=== PATIENT | male | born 1960 | race Caucasian/White ===

== ENCOUNTER → 2018-11-19 13:07 | Outpatient (CLI) | payer SELFPAY ==
[2018-11-19 13:36] LABS: Erythrocyte Sedimentation Rate 12 mm/hr (0-20)
== END ==
PROVIDERS: Family Provider Internal Medicine; PCP Internal Medicine; Referring Provider Internal Medicine
DX: M79.10 Myalgia, unspecified site (principal)
CPT/HCPCS: 36415; 85652

== ENCOUNTER → 2018-12-17 08:05 | Outpatient (CLI) | payer BC, SELFPAY ==
--- NOTE | 2018-12-17 08:34 | RAD_ITS ---
STUDY: X-RAY - RIGHT SHOULDER REASON FOR EXAM: Male, 58 years old. Shoulder pain TECHNIQUE: 4 view(s) of the shoulder. COMPARISON: None. FINDINGS: Mild degenerative changes of the acromioclavicular joint. The glenohumeral articulation is normal. No acute fractures. Old healed fractures involving some of the right upper ribs RAD/Shoulder min 2 Views IMPRESSION: No acute fractures of the shoulder girdle. Old healed fractures involving some of the upper ribs. Mild degenerative changes of the acromioclavicular joint Electronically Signed: Guido Castaneda MD at 6:23 EDT Tel , Service support ,
--- NOTE | 2018-12-17 08:35 | RAD_ITS ---
STUDY: X-RAY - LEFT SHOULDER REASON FOR EXAM: Male, 58 years old. Bilateral shoulder pain. TECHNIQUE: 4 view(s) of the shoulder. COMPARISON: None. FINDINGS: There is mild degenerative arthrosis of the glenohumeral articulation. There is degenerative arthrosis of the acromioclavicular joint without inferior osseous spur formation. Normal acromion. There is no acute fracture, dislocation or destructive osseous pathology. Normal humeral head and visualized proximal humerus. The soft tissue structures are unremarkable. Normal visualized pulmonary apex. RAD/Shoulder min 2 Views IMPRESSION: Mild arthrosis of the left shoulder. Electronically Signed: Alexander Woodard DO at 10:17 EDT Tel [phone], Service support ,
[2018-12-17 08:49] LABS: Absolute Lymphocyte Count 1.98 X10^3/ul (0.83-4.51); Absolute Neutrophil Count 4.8 X10^3/uL (2.0-7.7); Basophil# 0.04 X10^3/uL; Basophil% 0.5 % (0-1); Eosinophil# 0.22 X10^3/uL; Eosinophils% 2.8 % (0-5); Hematocrit 44.5 % (40-54); Hemoglobin 14.6 g/dl (13.0-16.5); Lymphocyte # 1.98 X10^3/ul (4.0); Lymphocyte % 25.6 % (19-41); Mean Corp Hgb Conc 32.8 g/gl (32-36); Mean Corpuscular Hgb 31.5 pg (27.0-32.0); Mean Corpuscular Volume 96.1 fL (80-94); Mean Platelet Vol. 8.9 fl (6.2-12.0); Monocyte# 0.69 X10^3/uL; Monocyte% 8.9 % (0-10); Neutrophil # 4.78 X10^3/uL (2.7-7.7); Neutrophil % 61.8 % (47-70); Platelet Count 248 K/mm3 (150-450); RBC Distribution Width CV 13.4 % (11.6-14.6); RBC Distribution Width SD 46.1 fl (35.1-43.9); Red Blood Count 4.63 M/mm3 (4.6-6.2); White Blood Count 7.7 K/mm3 (4.4-11.0)
[2018-12-17 08:54] LABS: POSITIVE COUNT NO; POSITIVE DIFFERENTIAL NO; POSITIVE MORPHOLOGY NO
[2018-12-17 09:26] LABS: ALB/GLOB Ratio 1.2 RATIO (0.9-2.4); AST(SGOT) 16 U/L (15-37); Alanine Aminotransfer ALT/SGPT 24 U/L (16-61); Albumin, Serum 3.8 g/dL (3.2-5.0); Alkaline Phosphatase 79 U/L (45-117); Anion Gap 5 (5-15); BUN 21 mg/dL (7-18); Calcium,Total 8.6 mg/dL (8.5-10.1); Chloride 111 mmol/L (98-107); Creatinine, Serum 1.05 mg/dL (0.70-1.30); EST Glomerular Filtration Rate 77 mL/min (>60); Est Glom Filt Rate - Afr Amer 93 mL/min (>60); Globulin 3.3 g/dL (2.2-4.2); Glucose 84 mg/dL (74-106); PSA,Total - Annual Screen 0.36 ng/mL (0.00-4.00); Potassium 4.9 mmol/L (3.5-5.1); Protein, Total 7.1 g/dL (6.4-8.2); Sodium Level 145 mmol/L (136-145); Thyroid Stim Hormone (TSH) 1.28 uIU/mL (0.358-3.74)
[2018-12-17 10:36] LABS: Vitamin D,25 Hydroxy 32.6 ng/mL (29.95-100.01)
[2018-12-19 14:07] LABS: CHOLESTEROL TOTAL 206 mg/dL (100-199); HDL-C 58 mg/dL (>39); HDL-P TOTAL 34.1 umol/L (>=30.5); SMALL LDL-P 355 nmol/L (<=527); TRIGLYCERIDES 96 mg/dL (0-149)
[2018-12-21 11:55] LABS: INSULIN RESISTANCE SCORE 34 (<=45); LDL SIZE 21.7 nm (>20.5); LDL-C 129 mg/dL (0-99); LDL-P 1359 nmol/L (<1000)
== END ==
PROVIDERS: Family Provider Internal Medicine; PCP Internal Medicine; Referring Provider Internal Medicine; Visit Provider Internal Medicine
DX: M25.511 Pain in right shoulder (principal); M25.512 Pain in left shoulder; E78.00 Pure hypercholesterolemia, unspecified; E55.9 Vitamin D deficiency, unspecified; Z12.5 Encounter for screening for malignant neoplasm of prostate
CPT/HCPCS: 36415; 73030; 80053; 80061; 82306; 83704; 84153; 84443; 85025; G0103

== ENCOUNTER → 2019-02-15 11:54 | Outpatient (CLI) | payer BC, SELFPAY ==
[2019-02-15 12:39] LABS: Absolute Lymphocyte Count 1.38 X10^3/ul (0.83-4.51); Basophil# 0.05 X10^3/uL; Basophil% 0.4 % (0-1); Eosinophil# 0.08 X10^3/uL; Eosinophils% 0.7 % (0-5); Hematocrit 45.8 % (40-54); Hemoglobin 15.1 g/dl (13.0-16.5); Lymphocyte # 1.38 X10^3/ul (4.0); Lymphocyte % 11.2 % (19-41); Mean Corpuscular Hgb 30.1 pg (27.0-32.0); Mean Corpuscular Volume 91.4 fL (80-94); Mean Platelet Vol. 9.1 fl (6.2-12.0); Monocyte# 0.69 X10^3/uL; Monocyte% 5.6 % (0-10); Neutrophil # 10.02 X10^3/uL (2.7-7.7); Neutrophil % 81.7 % (47-70); Platelet Count 318 K/mm3 (150-450); Red Blood Count 5.01 M/mm3 (4.6-6.2); White Blood Count 12.3 K/mm3 (4.4-11.0)
[2019-02-15 12:40] LABS: Erythrocyte Sedimentation Rate 19 mm/hr (0-20)
[2019-02-15 12:49] LABS: POSITIVE COUNT NO; POSITIVE DIFFERENTIAL NO; POSITIVE MORPHOLOGY NO
[2019-02-15 13:00] LABS: CRP, High Sensitivity Cardiac 2.09 mg/L; Rheumatoid Factor < 10.0 IU/mL (<15); Thyroid Stim Hormone (TSH) 0.85 uIU/mL (0.358-3.74)
[2019-02-17 14:06] LABS: PROELU- Albumin, Urine 29.9 % (.); PROELU- Alpha-2-Globulin,Ur 37.9 % (.); PROELU- Beta Globulin, Ur 15.9 % (.); PROELU- Gamma Globulin, Ur 12.2 % (.); Total Protein, Ur 12.3 mg/dL (Not Estab.)
== END ==
PROVIDERS: Family Provider Internal Medicine; PCP Internal Medicine; Referring Provider Nurse Practitioner; Visit Provider Nurse Practitioner
DX: M25.50 Pain in unspecified joint (principal)
CPT/HCPCS: 36415; 84165; 84166; 84443; 85025; 85652; 86141; 86200; 86431

== ENCOUNTER → 2019-03-17 13:01 | Outpatient (CLI) | payer BC, SELFPAY ==
[2019-03-17 13:38] LABS: Absolute Lymphocyte Count 1.61 X10^3/ul (0.83-4.51); Absolute Neutrophil Count 10.6 X10^3/uL (2.0-7.7); Basophil# 0.02 X10^3/uL; Basophil% 0.2 % (0-1); Eosinophil# 0.04 X10^3/uL; Eosinophils% 0.3 % (0-5); Hematocrit 41.9 % (40-54); Lymphocyte # 1.61 X10^3/ul (4.0); Lymphocyte % 12.6 % (19-41); Mean Corp Hgb Conc 33.4 g/gl (32-36); Mean Corpuscular Hgb 30.9 pg (27.0-32.0); Mean Corpuscular Volume 92.5 fL (80-94); Mean Platelet Vol. 9.3 fl (6.2-12.0); Monocyte# 0.43 X10^3/uL; Monocyte% 3.4 % (0-10); Neutrophil # 10.64 X10^3/uL (2.7-7.7); Neutrophil % 83.3 % (47-70); Platelet Count 264 K/mm3 (150-450); RBC Distribution Width CV 13.4 % (11.6-14.6); RBC Distribution Width SD 45.4 fl (35.1-43.9); Red Blood Count 4.53 M/mm3 (4.6-6.2); White Blood Count 12.8 K/mm3 (4.4-11.0)
[2019-03-17 13:53] LABS: POSITIVE COUNT NO; POSITIVE DIFFERENTIAL NO; POSITIVE MORPHOLOGY NO
== END ==
PROVIDERS: Family Provider Internal Medicine; PCP Internal Medicine; Referring Provider Nurse Practitioner; Visit Provider Nurse Practitioner
DX: D72.829 Elevated white blood cell count, unspecified (principal)
CPT/HCPCS: 36415; 85025

== ENCOUNTER → 2019-04-25 14:40 | Outpatient (CLI) | payer BC, SELFPAY ==
--- NOTE | 2019-04-25 15:20 | RAD_ITS ---
STUDY: X-RAY CHEST REASON FOR EXAM: Male, 58 years old. COPD, arthropathy TECHNIQUE: PA and lateral views of the chest. COMPARISON: None. FINDINGS: The lungs are clear and expanded. There is no demonstrated pleural abnormality. Normal size heart. Normal mediastinum and arturo. Normal visualized pulmonary arteries. There is atherosclerotic calcification of the aortic arch with tortuosity. There are diffuse degenerative changes of the visualized thoracic spine. Multiple old right-sided rib fractures. There are old left-sided rib fractures. There is no demonstrated abnormality of the visualized soft tissue structures of the upper abdomen. RAD/Chest PA and Lateral IMPRESSION: Bilateral old rib fractures. No evidence of acute focal infiltrate. Electronically Signed: Ruth Cisneros MD at 16:54 EDT Tel , Service support ,
[2019-04-25 15:39] LABS: Absolute Lymphocyte Count 2.19 X10^3/uL (0.83-4.51); Absolute Neutrophil Count 8.7 X10^3/uL (2.0-7.7); Basophil# 0.06 X10^3/uL; Basophil% 0.5 % (0-1); Eosinophil# 0.07 X10^3/uL; Eosinophils% 0.6 % (0-5); Hemoglobin 14.3 g/dL (13.0-16.5); Lymphocyte # 2.19 X10^3/ul (4.0); Lymphocyte % 18.8 % (19-41); Mean Corp Hgb Conc 32.5 g/dL (32-36); Mean Corpuscular Hgb 31.2 pg (27.0-32.0); Mean Corpuscular Volume 96.1 fL (80-94); Mean Platelet Vol. 9.3 fl (6.2-12.0); Monocyte# 0.52 X10^3/uL; Monocyte% 4.5 % (0-10); NRBC Flagged by Analyzer 0 % (0-5); Neutrophil # 8.74 X10^3/uL (2.7-7.7); Neutrophil % 75.1 % (47-70); Platelet Count 222 K/mm3 (150-450); RBC Distribution Width CV 13.2 % (11.6-14.6); Red Blood Count 4.58 M/mm3 (4.6-6.2); White Blood Count 11.6 K/mm3 (4.4-11.0)
[2019-04-25 16:08] LABS: Erythrocyte Sedimentation Rate 6 mm/hr (0-20)
[2019-04-25 16:39] LABS: ALB/GLOB Ratio 1.3 RATIO (0.9-2.4); AST(SGOT) 15 U/L (15-37); Alanine Aminotransfer ALT/SGPT 26 U/L (16-61); Albumin, Serum 3.9 g/dL (3.2-5.0); Alkaline Phosphatase 70 U/L (45-117); Anion Gap 6 (5-15); BUN 20 mg/dL (7-18); BUN/Creat Ratio 18.9 RATIO (10-20); CRP < 2.90 mg/L (0.0-3.0); Calcium,Total 8.9 mg/dL (8.5-10.1); Chloride 110 mmol/L (98-107); Creatinine, Serum 1.06 mg/dL (0.70-1.30); EST Glomerular Filtration Rate 76 mL/min (>60); Est Glom Filt Rate - Afr Amer 91 mL/min (>60); Globulin 3.1 g/dL (2.2-4.2); Glucose 90 mg/dL (74-106); Potassium 3.9 mmol/L (3.5-5.1); Rheumatoid Factor < 10.0 IU/mL (<15); Sodium Level 145 mmol/L (136-145)
[2019-04-26 14:21] LABS: Hepatitis B Surface Antibody Non-Reactive; Hepatitis B Surface Antigen Non-Reactive (Nonreactive); Hepatitis C Antibody Non-Reactive (Nonreactive)
[2019-04-27 15:54] LABS: ANTINUCLEAR ANTIBODIES DIRECT Negative (Negative)
[2019-04-28 03:07] LABS: QNTFERON TB Mitogen Value > 10.00 IU/mL (.); QNTFERON TB Nil Value 0.02 IU/mL (.); QNTFERON TB1+ Ag Value 0.02 IU/mL (.); QNTFERON TB2+ Ag Value 0.02 IU/mL (.)
[2019-04-28 11:45] LABS: CCP IgG Antibodies 3 units (0-19); Hepatitis B Core AB IgM Negative (Negative); QNTIFERON TB Positive Criteria Negative (Negative)
== END ==
PROVIDERS: Family Provider Internal Medicine; PCP Internal Medicine; Referring Provider Internal Medicine Rheumatology; Visit Provider Internal Medicine Rheumatology
DX: M06.4 Inflammatory polyarthropathy (principal); M47.892 Other spondylosis, cervical region; J44.9 Chronic obstructive pulmonary disease, unspecified; E78.5 Hyperlipidemia, unspecified; F32.89 Other specified depressive episodes; F41.1 Generalized anxiety disorder; Z87.11 Personal history of peptic ulcer disease
CPT/HCPCS: 36415; 71046; 80053; 85025; 85652; 86038; 86140; 86200; 86431; 86480; 86705; 86706; 86803; 87340

== ENCOUNTER → 2019-05-15 08:55 | Outpatient (CLI) | payer BC, SELFPAY ==
--- NOTE | 2019-05-15 08:58 | EKG12_ITS ---
Test Reason : PRE-OP Blood Pressure : / mmHG Vent. Rate : 048 BPM Atrial Rate : 048 BPM P-R Int : 128 ms QRS Dur : 080 ms QT Int : 414 ms P-R-T Axes : -08 037 030 degrees QTc Int : 369 ms Marked sinus bradycardia Abnormal ECG Confirmed by NASEEM MICHAEL MD ([id number]), news videotape editor DURAN CALERO ([id number]) on 05/16/2019 1:15:14 PM Referred By: JL Davenport Confirmed By:NASEEM MICHAEL MD
== END ==
PROVIDERS: Family Provider Internal Medicine; PCP Internal Medicine; Referring Provider Physician Assistant Surgical; Visit Provider Physician Assistant Surgical
DX: Z01.810 Encounter for preprocedural cardiovascular examination (principal)
CPT/HCPCS: 93005

== ENCOUNTER → 2019-07-07 16:56 | Outpatient (CLI) | payer BC, SELFPAY ==
[2019-07-07 17:21] LABS: Absolute Lymphocyte Count 2.43 X10^3/uL (0.83-4.51); Absolute Neutrophil Count 5.7 X10^3/uL (2.0-7.7); Basophil# 0.07 X10^3/uL; Basophil% 0.8 % (0-1); Eosinophil# 0.23 X10^3/uL; Eosinophils% 2.5 % (0-5); Hemoglobin 13.5 g/dL (13.0-16.5); Lymphocyte # 2.43 X10^3/ul (4.0); Lymphocyte % 26.9 % (19-41); Mean Corp Hgb Conc 33.8 g/dL (32-36); Mean Corpuscular Hgb 31.8 pg (27.0-32.0); Mean Corpuscular Volume 94.1 fL (80-94); Mean Platelet Vol. 8.7 fl (6.2-12.0); Monocyte# 0.56 X10^3/uL; Monocyte% 6.2 % (0-10); NRBC Flagged by Analyzer 0 % (0-5); Neutrophil # 5.72 X10^3/uL (2.7-7.7); Neutrophil % 63.4 % (47-70); Platelet Count 206 K/mm3 (150-450); RBC Distribution Width CV 13.2 % (11.6-14.6); RBC Distribution Width SD 45.1 fl (35.1-43.9); Red Blood Count 4.25 M/mm3 (4.6-6.2)
[2019-07-07 17:57] LABS: ALB/GLOB Ratio 1.5 RATIO (0.9-2.4); AST(SGOT) 18 U/L (15-37); Alanine Aminotransfer ALT/SGPT 22 U/L (16-61); Albumin, Serum 4.1 g/dL (3.2-5.0); Alkaline Phosphatase 72 U/L (45-117); Anion Gap 7 (5-15); BUN 20 mg/dL (7-18); BUN/Creat Ratio 18.5 RATIO (10-20); Calcium,Total 8.8 mg/dL (8.5-10.1); Chloride 108 mmol/L (98-107); Creatinine, Serum 1.08 mg/dL (0.70-1.30); EST Glomerular Filtration Rate 74 mL/min (>60); Est Glom Filt Rate - Afr Amer 89 mL/min (>60); Globulin 2.7 g/dL (2.2-4.2); Glucose 93 mg/dL (74-106); Protein, Total 6.8 g/dL (6.4-8.2); Sodium Level 141 mmol/L (136-145)
== END ==
PROVIDERS: Family Provider Internal Medicine; PCP Internal Medicine; Referring Provider Internal Medicine Rheumatology; Visit Provider Internal Medicine Rheumatology
DX: M06.4 Inflammatory polyarthropathy (principal); M47.892 Other spondylosis, cervical region; J44.9 Chronic obstructive pulmonary disease, unspecified; F41.9 Anxiety disorder, unspecified; F32.89 Other specified depressive episodes; E78.5 Hyperlipidemia, unspecified; Z87.11 Personal history of peptic ulcer disease
CPT/HCPCS: 36415; 80053; 85025

== ENCOUNTER → 2024-10-03 | Outpatient (CLI) | payer MEDICARE, SELFPAY ==
--- NOTE | 2024-10-03 12:35 | RAD_ITS ---
HISTORY: smoker, chest pain. TECHNIQUE: XR Chest 2 Views. COMPARISON: 04/25/2019. FINDINGS: CARDIOMEDIASTINAL BORDERS: Cardiac silhouette within normal limits in size. Mediastinal contour unremarkable with calcification of the aortic knob. LUNGS: Radiographically clear. Mild hyperinflation, suggesting COPD. PLEURA: No pleural effusion or pneumothorax seen. OSSEOUS STRUCTURES: Old bilateral rib fractures. RAD/Chest PA and Lateral IMPRESSION: No acute cardiopulmonary process identified. Electronically Signed: Belen Cooper MD at 8:43 EST ,
== END | disposition home or self-care (01) ==
PROVIDERS: PCP Family Medicine; Referring Provider Family Medicine; Visit Provider Family Medicine
DX: R07.9 Chest pain, unspecified (principal); F17.200 Nicotine dependence, unspecified, uncomplicated
CPT/HCPCS: 71046

== ENCOUNTER → 2024-10-05 | Outpatient (CLI) | payer MEDICARE, SELFPAY ==
[2024-10-05 15:12] LABS: Hematocrit 43.6 % (40-54); Hemoglobin 14.4 g/dL (13.0-16.5); Mean Platelet Vol. 9.2 fl (6.2-12.0); Platelet Count 305 K/mm3 (150-450); RBC Distribution Width CV 13.6 % (11.6-14.6); Red Blood Count 4.64 M/mm3 (4.6-6.2); White Blood Count 10.4 K/mm3 (4.4-11.0)
[2024-10-05 15:33] LABS: AST(SGOT) 14 U/L (15-37); Alanine Aminotransfer ALT/SGPT 23 U/L (16-61); Albumin, Serum 3.9 g/dL (3.2-5.0); Alkaline Phosphatase 101 U/L (45-117); Bilirubin, Direct 0.07 mg/dL (0.00-0.30); Cholesterol 236 mg/dL (200); Globulin 3.8 g/dL (2.2-4.2); High Density Lipoprotein 54 mg/dL; PSA,Total - Annual Screen 0.52 ng/mL (0.00-4.00); Protein, Total 7.7 g/dL (6.4-8.2); Triglycerides 399 mg/dL; Very Low Density Lipoprotein 80 mg/dL (5-40)
[2024-10-07 09:07] LABS: CRP, High Sensitivity 3.34 mg/L (0.00-3.00)
== END | disposition home or self-care (01) ==
LOC: MTLAB 12:41
PROVIDERS: PCP Family Medicine; Referring Provider Family Medicine; Visit Provider Family Medicine
DX: R07.9 Chest pain, unspecified (principal); Z12.5 Encounter for screening for malignant neoplasm of prostate; Z13.220 Encounter for screening for lipoid disorders; Z13.1 Encounter for screening for diabetes mellitus; F10.11 Alcohol abuse, in remission
CPT/HCPCS: 36415; 80061; 80076; 84153; 85027; 86141; G0103

== ENCOUNTER 2024-10-11 10:22 | Day surgery (SDC) | payer MEDICARE, SELFPAY ==
--- NOTE | 2024-10-09 16:28 | PAT.ANE_ITS ---
Pre-Assessment Diagnosis/Proposed Procedure Planned Operative Procedure(s): CSCOPE Anesthesia History Anesthesia History - manufacturing planner: Anesthesia History - manufacturing planner Hx Hospitalization No 10/09/24 16:16 Any Problems With Anesthesia No 10/09/24 16:16 Cholinesterase deficiency No 10/09/24 16:16 You/Your Family Experience No 10/09/24 16:16 fever (hyperthermia) with Relationship Recent Exposure to Contagious Disease Does patient have nerve No 10/09/24 16:16 stimulator Patient instructed to have device shut off --Does patient have Pacemaker or ICD? When Was Last Pacemaker Check QUESTION #4 FULL TEXT: You/Your Family Experience fever (hyperthermia) with Anesthesia Last Oral Intake Last Oral intake: Last Oral Intake NPO since Meds taken in AM with sips of water? Meds patient instructed to take am of surgery PONV PONV - manufacturing planner: PONV - manufacturing planner Female No 10/09/24 16:16 HX of Motion Sickness Yes 10/09/24 16:16 HX of N/V After Surgery No 10/09/24 16:16 Non-Smoker No 10/09/24 16:16 Duration of Surgery greater No 10/09/24 16:16 than 60 minutes Number of Risk Factors 1 10/09/24 16:16 PONV Score Low Risk 10/09/24 16:16 Height & Weight Height & Weight: Anesthesia: Height & Weight Height 5 ft 9 in 10/05/24 11:43 Respiratory Assessment Respiratory Assessment - manufacturing planner: Respiratory Tract Infection Hx - manufacturing planner Hx Respiratory Tract Infection No 10/09/24 16:16 STOP Sleep Apnea STOP Sleep Apnea - manufacturing planner: STOP Sleep Apnea - manufacturing planner Hx Hypertension No 10/09/24 16:16 Hx Sleep Apnea No 10/09/24 16:16 CPAP BIPAP Do you snore loudly (louder No 10/09/24 16:16 than talking or can be heard Do you often feel tired/ No 10/09/24 16:16 fatigued/ sleepy during daytime? Has anyone observed you stop No 10/09/24 16:16 breathing during sleep? STOP Results Negative 10/09/24 16:16 QUESTION #5 FULL TEXT : Do you snore loudly (louder than talking or can be heard through closed doors)? Tobacco Use History Tobacco Use History - manufacturing planner: Tobacco Use History - manufacturing planner Tobacco Use Smoking Status Current every day smoker 10/09/24 16:16 Hx Tobacco Use Yes 10/09/24 16:16 Years Smoking Packs Smoked per Day 0.5 10/09/24 16:16 Smoking Cessation Date was within the last 15 years Hx Smoking Cessation Date Hx Smoking Cessation Counseling Hematologic Medial History Hematologic Hx - manufacturing planner: Hematologic Medical Hx - volunteer coordinator Hx of Blood Transfusion No 10/09/24 16:16 Hx of Transfusion in last 3 No 10/09/24 16:16 Months Date of Last Transfusion (if within last 3 months) Ever experience any problems No 10/09/24 16:16 with transfusion(s)? Specify any problems Hx of Preganancy in last 3 N/A 10/09/24 16:16 Months Nurse Filling Out Transfusion NBUCHER 10/09/24 16:16 & Questions: Date: 10/09/24 10/09/24 16:16 Time: 16:16 10/09/24 16:16 Patient unable to answer at this time (ie. confused, unrespo /Reproduction History /Reproductive History - manufacturing planner: /Reproductive Hx- manufacturing planner Hx Now No 10/09/24 16:16 Gestational Age (in weeks): EDC: Hx Hx Para Hx Section SAB No 10/09/24 16:16 PFSH Medical History Wears glasses Broken teeth Loose, teeth Substance abuse Alcohol use Smoker History of cervical fracture (10/14/01) Tobacco abuse Hemorrhoid Marijuana use Home Medications ?Medication ?Instructions ?Recorded ?Last Taken ?Type MEDICAL MARIJUANA 10/05/24 Unknown History (INFORMATIONAL USE ONLY-PT USES MEDICAL MARIJUANA Allergy/AdvReac Type Severity Reaction Status Date / Time No Known Allergies Allergy Verified 10/09/24 16:15 Surgical History (Updated 10/09/24 @ 16:23 by Jojo Downey) History of neck surgery Hx of colonoscopy Social History (Updated 10/05/24 @ 11:39 by Tahira Vazquez) household members: none and other details: current occupational status: retired Smoking Status: Current every day smoker tobacco type: cigarettes alcohol intake: former substance use type: marijuana and other details: Daily Audit: Pertinent Findings Pertinent Findings EKG Perinent findings: 05/15/2019 sinus bradycardia 48 bpm Pulmonary function results/spirometer pertinent findings: 10/03/2024 no acute cardiopulmonary process identified Recommendation Anesthesia Recommendation Anesthesia recommendation: OPTIMIZED for anesthesia
--- NOTE | 2024-10-11 10:53 | PCM.PRE.AN2 ---
ASA Classification* ASA Classification ASA Classification: 2 Assessment & Plan Anesthesia* Anesthesia Assessment Anesthesia Assessment: Discussed sedation and/or anesthesia options, risks, benefits, and alternatives with patient/parents/legal guardian/POA. Questions invited. The patient/parents/legal guardian/POA seems to understand and agrees to proceed with anesthesia plan. Reviewed the physical assessment, medical history, allergy history and patient home medications list prior to surgery/procedure/anesthetic and documented any changes. Performed airway and anesthesia risk assessments. Anesthesia Type Anesthesia Type: MAC Anesthesia Focused Assessment* Airway Assessment Mouth opens: >3 cm Mallampati Score: II Focused Labs Anesthesia Preop lab: CBC WBC 10.4 K/mm3 (4.4-11.0) 10/05/24 12:46 RBC 4.64 M/mm3 (4.6-6.2) 10/05/24 12:46 Hgb 14.4 g/dL (13.0-16.5) 10/05/24 12:46 Hct 43.6 % (40-54) 10/05/24 12:46 Plt Count 305 K/mm3 (150-450) 10/05/24 12:46 CHEMISTRY Potassium 4.0 mmol/L (3.5-5.1) 07/07/19 17:03 Sodium 141 mmol/L (136-145) 07/07/19 17:03 BUN 20 mg/dL (7-18) H 07/07/19 17:03 Creatinine 1.08 mg/dL (0.70-1.30) 07/07/19 17:03 Glucose 93 mg/dL (74-106) 07/07/19 17:03 TSH 0.85 uIU/mL (0.358-3.74) 02/15/19 11:57 COAG Pre-Assessment Diagnosis/Proposed Procedure Planned Operative Procedure(s): CSCOPE Anesthesia History Anesthesia History - employment instructional associate: Anesthesia History - employment instructional associate Hx Hospitalization No 10/09/24 16:16 Any Problems With Anesthesia No 10/09/24 16:16 Cholinesterase deficiency No 10/09/24 16:16 You/Your Family Experience No 10/09/24 16:16 fever (hyperthermia) with Relationship Recent Exposure to Contagious Disease Does patient have nerve No 10/09/24 16:16 stimulator Patient instructed to have device shut off --Does patient have Pacemaker or ICD? When Was Last Pacemaker Check QUESTION #4 FULL TEXT: You/Your Family Experience fever (hyperthermia) with Anesthesia Last Oral Intake Last Oral intake: Last Oral Intake NPO since Meds taken in AM with sips of water? Meds patient instructed to take am of surgery PONV PONV - employment instructional associate: PONV - employment instructional associate Female No 10/09/24 16:16 HX of Motion Sickness Yes 10/09/24 16:16 HX of N/V After Surgery No 10/09/24 16:16 Non-Smoker No 10/09/24 16:16 Duration of Surgery greater No 10/09/24 16:16 than 60 minutes Number of Risk Factors 1 10/09/24 16:16 PONV Score Low Risk 10/09/24 16:16 Height & Weight Height & Weight: Anesthesia: Height & Weight Height 5 ft 9 in 10/05/24 11:43 Respiratory Assessment Respiratory Assessment - employment instructional associate: Respiratory Tract Infection Hx - employment instructional associate Hx Respiratory Tract Infection No 10/09/24 16:16 STOP Sleep Apnea STOP Sleep Apnea - employment instructional associate: STOP Sleep Apnea - employment instructional associate Hx Hypertension No 10/09/24 16:16 Hx Sleep Apnea No 10/09/24 16:16 CPAP BIPAP Do you snore loudly (louder No 10/09/24 16:16 than talking or can be heard Do you often feel tired/ No 10/09/24 16:16 fatigued/ sleepy during daytime? Has anyone observed you stop No 10/09/24 16:16 breathing during sleep? STOP Results Negative 10/09/24 16:16 QUESTION #5 FULL TEXT : Do you snore loudly (louder than talking or can be heard through closed doors)? Tobacco Use History Tobacco Use History - employment instructional associate: Tobacco Use History - employment instructional associate Tobacco Use Smoking Status Current every day smoker 10/09/24 16:16 Hx Tobacco Use Yes 10/09/24 16:16 Years Smoking Packs Smoked per Day 0.5 10/09/24 16:16 Smoking Cessation Date was within the last 15 years Hx Smoking Cessation Date Hx Smoking Cessation Counseling Hematologic Medial History Hematologic Hx - employment instructional associate: Hematologic Medical Hx - bow repairer custom Hx of Blood Transfusion No 10/09/24 16:16 Hx of Transfusion in last 3 No 10/09/24 16:16 Months Date of Last Transfusion (if within last 3 months) Ever experience any problems No 10/09/24 16:16 with transfusion(s)? Specify any problems Hx of Preganancy in last 3 N/A 10/09/24 16:16 Months Nurse Filling Out Transfusion NBUCHER 10/09/24 16:16 & Questions: Date: 10/09/24 10/09/24 16:16 Time: 16:16 10/09/24 16:16 Patient unable to answer at this time (ie. confused, unrespo /Reproduction History /Reproductive History - employment instructional associate: /Reproductive Hx- employment instructional associate Hx Now No 10/09/24 16:16 Gestational Age (in weeks): EDC: Hx Hx Para Hx Section SAB No 10/09/24 16:16 PFSH Medical History Wears glasses Broken teeth Loose, teeth Substance abuse Alcohol use Smoker History of cervical fracture (10/14/01) Tobacco abuse Hemorrhoid Marijuana use Home Medications ?Medication ?Instructions ?Recorded ?Last Taken ?Type MEDICAL MARIJUANA 10/05/24 Unknown History (INFORMATIONAL USE ONLY-PT USES MEDICAL MARIJUANA Allergy/AdvReac Type Severity Reaction Status Date / Time No Known Allergies Allergy Verified 10/09/24 16:15 Surgical History History of neck surgery Hx of colonoscopy Social History household members: none and other details: current occupational status: retired Smoking Status: Current every day smoker tobacco type: cigarettes alcohol intake: former substance use type: marijuana and other details: Daily Review of Systems (Anesthesia) ROS Narrative System reviewed and no additional complaints, except as documented.
[2024-10-11 10:59] VITALS: BP 128/88; PULSE 87; RESP 18; TEMP 36.6; O2SAT 99; BMI 23.1
--- NOTE | 2024-10-11 11:36 | HP.PCM_ITS ---
HPI - General HPI Narrative CLYDE VU, is a 64 M who presents for screening colonoscopy. His last colonoscopy was at age 48. He denies abdominal pain or blood in the stool. [facility] Medical History Wears glasses Broken teeth Loose, teeth Substance abuse Alcohol use Smoker History of cervical fracture (10/14/01) Tobacco abuse Hemorrhoid Marijuana use Home Medications ?Medication ?Instructions ?Recorded ?Last Taken ?Type MEDICAL MARIJUANA 10/05/24 Unknown History (INFORMATIONAL USE ONLY-PT USES MEDICAL MARIJUANA Allergy/AdvReac Type Severity Reaction Status Date / Time No Known Allergies Allergy Verified 10/11/24 10:58 Surgical History History of neck surgery Hx of colonoscopy Social History household members: none and other details: current occupational status: retired Smoking Status: Current every day smoker tobacco type: cigarettes alcohol intake: former substance use type: marijuana and other details: Daily Past Medical/Surgical History Planned Operation Planned Operative Procedure(s): CSCOPE Previous Hospitalizations/Surgeries HX Hospitalizations: No Any Problems With Anesthesia: No You/Your Family Experience Fever (Hyperthermia) With Anes: No Cholinesterase deficiency: No Cardiovascular Hx of Irregular Heartbeat and/or Afib: No Hx Heart Attack: No Hx Congestive Heart Failure: No Hx Hypertension: No Hx Pacemaker: No Respiratory Hx Chronic Obstructive Pulmonary Disease (COPD): No Hx Asthma: No Hx Emphysema: No Hx Sleep Apnea: No Hx Respiratory Tract Infection/Cold (presently): No Do You Snore Loudly (louder than talking or can be heard): No Do You Often Feel Tired/ Fatigued/ Sleepy Dring Daytime?: No Has Anyone Observed You Stop Breathing During Sleep?: No Result (for STOP score): Negative Smoking Status: Current every day smoker Gastrointestinal Hx Ulcer: No Neurological Hx Seizures: No Hx Headaches: Yes Does patient have nerve stimulator: No Reproduction : No Miscellaneous Recent Exposure to Contagious Disease: No Allergies No Known Allergies Allergy (Verified 10/11/24 10:58) Discharge Is Pt Admitted From a Intermediate, or a [facility]: No After D/C, Where Do you Plan to Go: Return Home Vital Signs Vital Signs Vital Signs: 10/11/24 10:59 10/11/24 10:59 Temperature 97.8 F Temperature Source Temporal Pulse Rate 87 Respiratory Rate 18 Respiratory Pattern Normal Blood Pressure 128/88 H Blood Pressure Mean 101 Blood Pressure Source Monitor Blood Pressure Position Sitting Blood Pressure Location Left Arm Pulse Ox 99 Oxygen Delivery Method Room Air Weight Weight: 157 lb Body Mass Index (BMI) 23.1 Physical Exam Const alert and oriented x3 HEENT normocephalic Eyes PERRL Resp normal respiratory effort and normal air movement Cardio regular rate and regular rhythm GI soft to palpation, non-tender and non-distended Extremity normal to inspection Assessment & Plan Assessment/Plan (1) Encounter for screening for malignant neoplasm of colon: PLAN: I explained endoscopy in detail to the patient. I explained the risks including but not limited to stroke or heart attack with anesthesia, perforation of the GI tract, bleeding, infection. I explained that any of these could necessitate further emergency surgery. The patient understands and all questions were answered sufficiently. The patient wishes to proceed with procedure. Yao Bonds MD Pager: [facility] [address] [place] [address] [address] [place] [address] Office: Surgery Risks - Colonoscopy Risks Include but are not Limited To: Risks include but are not limited to: Bleeding, perforation requiring further surgery, inability to complete colonoscopy requiring barium enema.
--- NOTE | 2024-10-11 12:14 | OP.COLON_ITS ---
Patient Name: Jozef Bermudez Procedure Date: 10/11/2024 11:42 AM Date of : 1960 Age: 64 Procedure: Colonoscopy Indications: Screening for colorectal malignant neoplasm Providers: Yao Bonds MD Referring MD: Alvin Matias Medicines: Propofol per Anesthesia Patient Profile: This is a 64 year old male. Refer to note in patient chart for documentation of history and physical. Last Colonoscopy: more than 10 years ago. Complications: No immediate complications. Procedure: Pre-Anesthesia Assessment: - Prior to the procedure, a History and Physical was performed, and patient medications and allergies were reviewed. The patient's tolerance of previous anesthesia was also reviewed. The risks and benefits of the procedure and the sedation options and risks were discussed with the patient. All questions were answered, and informed consent was obtained. Prior Anticoagulants: The patient has taken no anticoagulant or antiplatelet agents. After reviewing the risks and benefits, the patient was deemed in satisfactory condition to undergo the procedure. After I obtained informed consent, the scope was passed under direct vision. Throughout the procedure, the patient's blood pressure, pulse, and oxygen saturations were monitored continuously. The Colonoscope was introduced through the anus and advanced to the cecum, identified by appendiceal orifice and ileocecal valve. The colonoscopy was performed without difficulty. The patient tolerated the procedure well. The quality of the bowel preparation was good. The ileocecal valve, appendiceal orifice, and rectum were photographed. Scope In: 11:59:46 AM Scope Withdrawal Time 0 hours 6 minutes 9 seconds Scope Out: 12:10:00 PM Total Procedure Duration Time 0 hours 10 minutes 14 seconds Findings: The entire examined colon appeared normal on direct and retroflexion views. Impression: - The entire examined colon is normal on direct and retroflexion views. - No specimens collected. Recommendation: - Discharge patient to home. - Resume previous diet. - Continue present medications. - Repeat colonoscopy in 10 years for screening purposes. Procedure Code(s): --- Professional --- 89893, Colonoscopy, flexible; diagnostic, including collection of specimen(s) by brushing or washing, when performed (separate procedure) Diagnosis Code(s): --- Professional --- Z12.11, Encounter for screening for malignant neoplasm of colon CPT copyright 2021 [employer]. All rights reserved. The codes documented in this report are preliminary and upon shove up review may be revised to meet current compliance requirements. Yoa Bonds MD 10/11/2024 12:14:38 PM This report has been signed electronically. Number of Addenda: 0 Note Initiated On: 10/11/2024 11:42 AM
[2024-10-11 12:15] VITALS: BP 128/88; BP 98/65; PULSE 71; RESP 16; TEMP 36.3; O2SAT 99
--- NOTE | 2024-10-11 12:15 | OP.CCLET_ITS ---
10/11/2024 Alvin Matias [address] [place] [address] Re : Colonoscopy procedure for Jozef Bermudez Dear Dr. Matias This procedure was performed on Friday, October 11, 2024. My impressions and recommendations are as follows: Impressions : - The entire examined colon is normal on direct and retroflexion views. - No specimens collected. Recommendations : - Discharge patient to home. - Resume previous diet. - Continue present medications. - Repeat colonoscopy in 10 years for screening purposes. My findings are described in the full procedure note, which is enclosed. If I can be of further assistance, please feel free to contact me at Doctor phone number(s): , Work: . Sincerely, Yao Bonds MD 10/11/2024 12:14:38 PM This report has been signed electronically.
--- NOTE | 2024-10-11 12:16 | PCM.POST.ANE ---
Anesthesia: Postop Eval I Current Vital Signs Temperature: 97.3 F Pulse Rate: 68 Blood Pressure: 98/65 Respiratory Rate: 16 Pulse Ox: 99 Assessment Airway patent: Yes Spontaneous unlabored respirations: Yes nausea: No Vomiting: No Anesthesia Complication: No Fluid Hydration Crystalloid volume administer (ml): 20 Total IV fluid infused: 20 Progress Note Anesthesia document: Postop Eval 1 completed: Yes
[2024-10-11 12:17] VITALS: BP 98/65; PULSE 68; RESP 16; TEMP 36.3; O2SAT 99
[2024-10-11 12:20] VITALS: BP 101/67; BP 128/88; PULSE 65; RESP 16; O2SAT 99
[2024-10-11 12:25] VITALS: BP 110/86; BP 128/88; PULSE 53; RESP 16; TEMP 36.8; O2SAT 100
[2024-10-11 12:33] VITALS: BP 128/88
--- NOTE | 2024-10-11 13:02 | POSTOPAN2_ITS ---
Anesthesia Postop Eval I Sum Postop Eval Completion status Anesthesia document: Postop Eval 1 completed: Yes Anesthesia Postop Eval I Summary Anesthesia Postop Eval I Summary: Anesthesia Postop Eval I: Assessment Summary Airway patent Yes 10/11/24 12:17 CNC [email or web address] Spontaneous unlabored Yes 10/11/24 12:17 CNC [email or web address] respirations Mental status nausea No 10/11/24 12:17 CNC [email or web address] Vomiting No 10/11/24 12:17 [email or web address] [email or web address] Anesthesia Postop Eval I: Fluid Summary Crystalloid volume administer 20 10/11/24 12:17 CNC [email or web address] (ml) Colloids volume administered ( ml) Blood Product volume administered (ml) Total IV fluid infused 20 10/11/24 12:17 CNC [email or web address] Anesthesia Postop Eval I: Summary Notes Anesthesia Complication No 10/11/24 12:17 CNC [email or web address] Anesthesia Complication Comment: Post-operative progress note Anesthesia: Postop Eval II Evaluation Mental status: Awake Pain Level: 0 nausea: No Vomiting: No
--- NOTE | 2024-10-11 13:02 | PCM.POSTANE2 ---
Anesthesia Postop Eval I Sum Postop Eval Completion status Anesthesia document: Postop Eval 1 completed: Yes Anesthesia Postop Eval I Summary Anesthesia Postop Eval I Summary: Anesthesia Postop Eval I: Assessment Summary Airway patent Yes 10/11/24 12:17 [email or web address] Spontaneous unlabored Yes 10/11/24 12:17 [email or web address] [email or web address] respirations Mental status nausea No 10/11/24 12:17 [email or web address] Vomiting No 10/11/24 12:17 [email or web address] Anesthesia Postop Eval I: Fluid Summary Crystalloid volume administer 20 10/11/24 12:17 [email or web address] (ml) Colloids volume administered ( ml) Blood Product volume administered (ml) Total IV fluid infused 20 10/11/24 12:17 [email or web address] Anesthesia Postop Eval I: Summary Notes Anesthesia Complication No 10/11/24 12:17 [email or web address] Anesthesia Complication Comment: Post-operative progress note Anesthesia: Postop Eval II Evaluation Mental status: Awake Pain Level: 0 nausea: No Vomiting: No
== END 2024-10-11 12:59 | disposition home or self-care (01) ==
LOC: EN 10:24 → AC 10:25
PROVIDERS: PCP Family Medicine; Referring Provider Family Medicine; Visit Provider Surgery
PROC: 0DJD8ZZ Inspection of Lower Intestinal Tract, Via Natural or Artificial Opening Endoscopic (ICD-10-PCS; CPT 45378; principal; 2024-10-11 11:55)
DX: Z12.11 Encounter for screening for malignant neoplasm of colon (principal); F17.210 Nicotine dependence, cigarettes, uncomplicated
CPT/HCPCS: G0121

== ENCOUNTER → 2025-05-30 | Outpatient (CLI) | payer MEDICARE, SELFPAY ==
--- NOTE | 2025-05-30 16:51 | RAD_ITS ---
PROCEDURE: SHOULDER MIN 2 VIEWS 05/30/2025 REASON FOR EXAM: L SHOULDER PAIN TECHNIQUE: Procedure Code: RADSH Modality: DX Procedure: SHOULDER MIN 2 VIEWS Laterality: Left COMPARISON: December 17, 2018 FINDINGS: There is no acute fracture or dislocation. Minimal spurring and/or joint space narrowing involving the inferior aspect of the glenohumeral joint. RAD/Shoulder min 2 Views IMPRESSION: No acute bony abnormality. Reading Location: [facility]
== END | disposition home or self-care (01) ==
LOC: MTRAD 16:47
PROVIDERS: PCP Family Medicine; Referring Provider Family Medicine; Visit Provider Family Medicine
DX: M25.512 Pain in left shoulder (principal)
CPT/HCPCS: 73030